=== PATIENT | female | born 1945 | race Two or more races ===

== ENCOUNTER 2019-04-17 11:52 | Emergency (ER) | payer MEDICARE ==
[~2019-04-17] VITALS: Ht 157.5 cm; Wt 52.7 kg
--- NOTE | 2019-04-17 12:51 | NUR ---
PT TO ED AFTER GLF ONTO CONCRETE, L WRIST DEFORMITY AND SWELLING. XRAYS DONE. PT RESTING IN GURNEY WITH FRIEND AT BEDSIDE. CALL LIGHT WITHIN REACH
[2019-04-17] MEDS ORDERED: HYDROmorphone 1 MG/ML, 1ML VIAL ONE ×2 (13:29→14:06)
[2019-04-17] MEDS ORDERED: SODIUM CHLORIDE FLUSH 10ML SYR IVF ONE (13:30)
[2019-04-17] MEDS: HYDROmorphone 1 MG/ML, 1ML INJ IVPush PRN ×2 (13:44→14:25)
[2019-04-17] MEDS ORDERED: LIDOCAINE-MPF 1%, 5ML ONE (13:46)
[2019-04-17] MEDS ORDERED: BUPIVACAINE 0.25% ONE (13:46)
--- NOTE | 2019-04-17 13:53 | NUR ---
DR PHAM FROM [facility]TH[facility] AT BEDSIDE FOR L WRIST REDUCTION WITH HEMATOMA BLOCK, NO CONCIOUS SEDATION
[2019-04-17] MEDS ORDERED: BUPIVACAINE/PF 0.25% INFIL ONE (14:00)
[2019-04-17] MEDS ORDERED: LIDOCAINE 1%, 10ML INFIL ONE (14:00)
[2019-04-17 14:27] VITALS: BP 174/82
== END 2019-04-17 15:28 | disposition home or self-care (01) ==
LOC: ED 15:25
DX: S52.572A Other intraarticular fracture of lower end of left radius, initial encounter for closed fracture (principal); I10 Essential (primary) hypertension; M81.0 Age-related osteoporosis without current pathological fracture; W01.0XXA Fall on same level from slipping, tripping and stumbling without subsequent striking against object, initial encounter; Y93.01 Activity, walking, marching and hiking; Y92.22 Religious institution as the place of occurrence of the external cause; Y99.8 Other external cause status
CPT/HCPCS: 25605; 73100; 73110; 96374; 96376; 99284; J1170